=== PATIENT | female | born 1950 | race Caucasian/White ===

== ENCOUNTER → 2017-03-10 | Outpatient (CLI) | payer OTHER | LOC: FIMAGING 13:34 | PROVIDERS: ATTEND Physical Medicine & Rehabilitation | DX: M81.0 Age-related osteoporosis without current pathological fracture (principal); M54.6 Pain in thoracic spine ==

== ENCOUNTER → 2018-04-11 | Outpatient (CLI) | payer OTHER | LOC: FIMAGING 10:41 | PROVIDERS: ATTEND Physician Assistant | DX: R05 Cough (principal) ==

== ENCOUNTER 2018-05-20 16:29 | Emergency (ER) | payer OTHER ==
--- NOTE | 2018-05-20 16:47 | CPEKG ---
Test Reason : OPEN Blood Pressure : / mmHG Vent. Rate : 074 BPM Atrial Rate : 075 BPM P-R Int : 128 ms QRS Dur : 079 ms QT Int : 382 ms P-R-T Axes : 018 077 038 degrees QTc Int : 424 ms Sinus rhythm Confirmed by Michael Mcclure ([id number]) on 05/20/2018 4:46:58 PM Referred By: Confirmed By:Michael Mcclure
--- NOTE | 2018-05-20 16:55 | EDPHY ---
H & P Stated Complaint: cp Time Seen by Provider: 05/20/18 16:46 HPI/ROS: CHIEF COMPLAINT: chest cramping HISTORY OF PRESENT ILLNESS: The patient is a 67-year-old female who comes to the emergency department complaining of intermittent chest cramping sensation over the last week. She states that it is been somewhat constant over the last 4-5 hours. She was talking with her sister about the medications she takes. She states that her sister told her trazodone has a lot of side effects. The patient began looking them up on the Internet and saw that rapid heartbeat and chest pain which sometimes side effects of trazodone. She then began noticing that she was having some chest cramping. No nausea vomiting. No diaphoresis. No shortness of breath. She then called the cardiology office and Dr. Harmon recommended she come to the ER for evaluation. She does not think that she is having heart attack. She tells me that she was not pay much attention to it because she is more concerned about her chronic hip pain all week. No recent travel. No leg pain or swelling. No history of PE or DVT. Severity: Minimal Modifying factors: None REVIEW OF SYSTEMS: Constitutional: denies: chills, fever, recent illness, recent injury EENTM: denies: blurred vision, double vision, nose congestion Respiratory: denies: cough, shortness of breath Cardiac: See HPI denies: irregular heart rate, lightheadedness, palpitations Gastrointestinal/Abdominal: denies: abdominal pain, diarrhea, nausea, vomiting, blood streaked stools Genitourinary: denies: dysuria, frequency, hematuria, pain Musculoskeletal: denies: joint pain, muscle pain Skin: denies: lesions, rash, jaundice, bruising Neurological: denies: headache, numbness, paresthesia, tingling, dizziness, weakness Hematologic/Lymphatic: denies: blood clots, easy bleeding, easy bruising Immunologic/allergic: denies: HIV/AIDS, transplant 10 systems reviewed and negative except as noted EXAM: GENERAL: Well-appearing, well-nourished and in no acute distress. HEAD: Atraumatic, normocephalic. EYES: Pupils equal round and reactive to light, extraocular movements intact, sclera anicteric, conjunctiva are normal. ENT: TMs normal, nares patent, oropharynx clear without exudates. Moist mucous membranes. NECK: Normal range of motion, supple without lymphadenopathy or JVD. LUNGS: Breath sounds clear to auscultation bilaterally and equal. No wheezes rales or rhonchi. HEART: Regular rate and rhythm without murmurs, rubs or gallops. ABDOMEN: Soft, nontender, normoactive bowel sounds. No guarding, no rebound. No masses appreciated. BACK: No CVA tenderness, no spinal tenderness, step-offs or deformities EXTREMITIES: Normal range of motion, no pitting or edema. No clubbing or cyanosis. NEUROLOGICAL: Cranial nerves II through XII grossly intact. Normal speech, normal gait. 5/5 strength, normal movement in all extremities, normal sensation , normal reflexes PSYCH: Normal mood, normal affect. SKIN: Warm, dry, normal turgor, no visible rashes or lesions. Source: Patient Exam Limitations: No limitations - Personal History Current Tetanus/Diphtheria Vaccine: Yes - Medical/Surgical History Hx Asthma: No Hx Chronic Respiratory Disease: No Hx Diabetes: No Hx Cardiac Disease: No Hx Renal Disease: No Hx Cirrhosis: No Hx Alcoholism: No Hx HIV/AIDS: No Hx Splenectomy or Spleen Trauma: No Other PMH: Seizures, mitral valve prolapse - Family History Significant Family History: No pertinent family hx - Social History Smoking Status: Never smoked Alcohol Use: Sober Drug Use: None Constitutional: Initial Vital Signs Temperature (C) 36.8 C 05/20/18 16:36 Heart Rate 82 05/20/18 16:36 Respiratory Rate 16 05/20/18 16:36 Blood Pressure 141/87 H 05/20/18 16:36 O2 Sat (%) 94 05/20/18 16:36 O2 Delivery Mode Room Air Allergies/Adverse Reactions: phenytoin sodium [From Dilantin] Allergy (Verified 07/31/15 15:44) phenytoin sodium extended [From Dilantin] Allergy (Verified 07/31/15 15:44) Home Medications: Medication Instructions Recorded Estradiol [Estrace Vaginal (*)] 1 jacky VG DAILY 07/31/15 Herbals/Supplements -Info Only 1 ea PO DAILY 07/31/15 Hydrocodone/Acetaminophen [[place] 1 each PO Q4 PRN 07/31/15 5/325 (*)] Naltrexone 4.5mg Compounded 4.5 mg PO HS 12/31/15 Nystatin 500,000 unit PO TID 07/31/15 Rosuvastatin Calcium [Crestor 5mg] 5 mg PO MWF 07/31/15 levETIRAcetam [Keppra 500 mg (*)] 500 mg PO BID 07/31/15 Pantoprazole Sodium [Protonix 40mg 40 mg PO BID #120 tab 08/02/15 (*)] Ferrous Sulfate 325 mg PO DAILY #60 tablet. 08/03/15 Medical Decision Making - Diagnostics EKG Interpretation: An EKG obtained and was read and documented in trace view. Please see trace view for full reading and report. Sinus rhythm, no acute ischemic changes, unchanged from previous Imaging Results: Imaging Impressions Chest X-Ray 05/20/18 16:51 Impression: No acute cardiopulmonary process. Imaging: Discussed imaging studies w/ call center rn Radiologist ED Course/Re-evaluation: 6:15 p.m. We discussed her test results which are very reassuring. She is currently asymptomatic. We gauged ensure decision making. She does not wish to stay for any further testing. She will follow up with her filament welder Dr. Madden. I have requested a follow-up Cardiology consultation and stress test. She is agree with this. We discussed indications for returning. I feel that this is very low risk to be cardiac etiology. I also encouraged her to go back on her Protonix. She thinks that it is due to stress. She states she has the had "a lot going on the last few weeks". Differential Diagnosis: Partial list of the Differential diagnosis considered include but were not limited to; GERD, stress, musculoskeletal pain and although unlikely based on the history and physical exam, I also considered PE, pneumonia, acute coronary disease, dissection. I discussed these differential diagnoses and the plan with the patient as well as the usual and expected course. The patient understands that the diagnosis is provisional and that in medicine we are not always correct and that further workup is often warranted. Usual and customary warnings were given. All of the patient's questions were answered. The patient was instructed to return to the emergency department should the symptoms at all worsen or return, otherwise to followup with the physician as we discussed. - Data Points Laboratory Results: Laboratory Results 05/20/18 16:55 05/20/18 16:55 05/20/18 05/20/18 05/20/18 16:59 16:55 16:55 WBC RBC Hgb Hct MCV MCH MCHC RDW Plt Count MPV Neut % (Auto) Lymph % (Auto) Walker % (Auto) Eos % (Auto) Baso % (Auto) Nucleat RBC Rel Count Absolute Neuts (auto) Absolute Lymphs (auto) Absolute Monos (auto) Absolute Eos (auto) Absolute Basos (auto) Absolute Nucleated RBC Immature Gran % Immature Gran # D-Dimer < 0.27 ug/mLFEU ug/mLFEU (0.00-0.50) Sodium 139 mEq/L mEq/L (135-145) Potassium 4.1 mEq/L mEq/L (3.3-5.0) Chloride 101 mEq/L mEq/L (97-110) Carbon Dioxide 27 mEq/l mEq/l (22-31) Anion Gap 11 mEq/L mEq/L (6-14) BUN 14 mg/dL mg/dL (7-23) Creatinine 0.6 mg/dL mg/dL (0.6-1.0) Estimated GFR > 60 Glucose 106 mg/dL H mg/dL (70-100) Calcium 9.7 mg/dL mg/dL (8.5-10.4) Total Bilirubin 0.3 mg/dL mg/dL (0.1-1.4) Conjugated Bilirubin 0.2 mg/dL mg/dL (0.0-0.5) Unconjugated Bilirubin 0.1 mg/dL mg/dL (0.0-1.1) AST 24 IU/L IU/L (14-46) ALT 20 IU/L IU/L (9-52) Alkaline Phosphatase 68 IU/L IU/L (38-126) POC Troponin I 0.01 ng/mL ng/mL (0.00-0.08) Total Protein 7.3 g/dL g/dL (6.3-8.2) Albumin 4.3 g/dL g/dL (3.5-5.0) Lipase 256 IU/L IU/L (23-300) 05/20/18 16:55 WBC 5.71 10^3/uL 10^3/uL (3.80-9.50) RBC 4.50 10^6/uL 10^6/uL (4.18-5.33) Hgb 14.3 g/dL g/dL (12.6-16.3) Hct 42.0 % % (38.0-47.0) MCV 93.3 fL fL (81.5-99.8) MCH 31.8 pg pg (27.9-34.1) MCHC 34.0 g/dL g/dL (32.4-36.7) RDW 12.3 % % (11.5-15.2) Plt Count 244 10^3/uL 10^3/uL (150-400) MPV 10.2 fL fL (8.7-11.7) Neut % (Auto) 56.5 % % (39.3-74.2) Lymph % (Auto) 31.3 % % (15.0-45.0) Walker % (Auto) 10.0 % % (4.5-13.0) Eos % (Auto) 1.4 % % (0.6-7.6) Baso % (Auto) 0.4 % % (0.3-1.7) Nucleat RBC Rel Count 0.0 % % (0.0-0.2) Absolute Neuts (auto) 3.23 10^3/uL 10^3/uL (1.70-6.50) Absolute Lymphs (auto) 1.79 10^3/uL 10^3/uL (1.00-3.00) Absolute Monos (auto) 0.57 10^3/uL 10^3/uL (0.30-0.80) Absolute Eos (auto) 0.08 10^3/uL 10^3/uL (0.03-0.40) Absolute Basos (auto) 0.02 10^3/uL 10^3/uL (0.02-0.10) Absolute Nucleated RBC 0.00 10^3/uL 10^3/uL (0-0.01) Immature Gran % 0.4 % % (0.0-1.1) Immature Gran # 0.02 10^3/uL 10^3/uL (0.00-0.10) D-Dimer Sodium Potassium Chloride Carbon Dioxide Anion Gap BUN Creatinine Estimated GFR Glucose Calcium Total Bilirubin Conjugated Bilirubin Unconjugated Bilirubin AST ALT Alkaline Phosphatase POC Troponin I Total Protein Albumin Lipase Point of Care Test Results: Chemistry 05/20/18 16:59 POC Troponin I 0.01 ng/mL ng/mL (0.00-0.08) Departure - Departure Disposition: Home, Routine, Self-Care Clinical Impression: Chest pain Qualifiers: Chest pain type: unspecified Qualified Code(s): R07.9 - Chest pain, unspecified Condition: Fair Instructions: Chest Pain (ED) Referrals: NONE *PRIMARY CARE P,. [Primary Care Provider] - As per Instructions Katey Madden MD [Medical Doctor] - As per Instructions
[2018-05-20 17:22] LABS: PLATELET COUNT 244 10^3/uL (150-400)
[2018-05-20 17:30] VITALS: BP 129/77
== END 2018-05-20 18:46 | disposition home or self-care (01) ==
DX: R07.89 Other chest pain (principal); Z79.899 Other long term (current) drug therapy; I34.1 Nonrheumatic mitral (valve) prolapse; G40.909 Epilepsy, unspecified, not intractable, without status epilepticus
CPT/HCPCS: 84484-PO

== ENCOUNTER 2018-11-03 13:50 | Emergency (ER) | payer OTHER ==
--- NOTE | 2018-11-03 14:13 | EDPHY ---
H & P Stated Complaint: Dark stool for 1 week, sent by PCP. Time Seen by Provider: 11/03/18 14:10 - Personal History Current Tetanus Diphtheria and Acellular Pertussis (TDAP): Yes - Medical/Surgical History Hx Asthma: No Hx Chronic Respiratory Disease: No Hx Diabetes: No Hx Cardiac Disease: No Hx Renal Disease: No Hx Cirrhosis: No Hx Alcoholism: No Hx HIV/AIDS: No Hx Splenectomy or Spleen Trauma: No Other PMH: Seizures. Stomach ulcer. - Social History Smoking Status: Never smoked Constitutional: Initial Vital Signs Temperature (C) 36.6 C 11/03/18 13:56 Heart Rate 84 11/03/18 13:56 Respiratory Rate 16 11/03/18 13:56 Blood Pressure 99/74 L 11/03/18 13:56 O2 Sat (%) 97 11/03/18 13:56 O2 Delivery Mode Room Air Allergies/Adverse Reactions: phenytoin sodium [From Dilantin] Allergy (Verified 07/31/15 15:44) phenytoin sodium extended [From Dilantin] Allergy (Verified 07/31/15 15:44) Home Medications: Medication Instructions Recorded Estradiol [Estrace Vaginal (*)] 1 jacky VG DAILY 07/31/15 Herbals/Supplements -Info Only 1 ea PO DAILY 07/31/15 Hydrocodone/Acetaminophen [[place] 1 each PO Q4 PRN 07/31/15 5/325 (*)] Naltrexone 4.5mg Compounded 4.5 mg PO HS 07/31/15 Nystatin 500,000 unit PO TID 07/31/15 Rosuvastatin Calcium [Crestor 5mg] 5 mg PO MWF 07/31/15 levETIRAcetam [Keppra 500 mg (*)] 500 mg PO BID 07/31/15 Pantoprazole Sodium [Protonix 40mg 40 mg PO BID #120 tab 08/02/15 (*)] Ferrous Sulfate 325 mg PO DAILY #60 tablet. 08/03/15 Medical Decision Making ED Course/Re-evaluation: CHIEF COMPLAINT: HISTORY OF PRESENT ILLNESS: must have 4 elements: Location, Quality, Severity , Duration, Timing, Context, Modifying Factors, Associated Signs and Symptoms REVIEW OF SYSTEMS: A comprehensive 10 system review of systems is otherwise negative aside from elements mentioned in the history of present illness and medical decision making. PHYSICAL EXAM: HR, BP, O2 Sat, RR. Temp noted General Appearance: Alert, well hydrated, appropriate, and non-toxic appearing. Head: Atraumatic without scalp tenderness or obvious injury Eyes: Pupils equal, round, reactive to light and accommodation, EOMI, no trauma , no injection. Ears: Clear bilaterally, no perforation, normal landmarks Nose: Atraumatic, no rhinorrhea, clear. Throat: There is no erythema or exudates, no lesions, normal tonsils, mucus membranes moist. Neck: Supple, 2+ carotid upstroke, nontender, no lymphadenopathy. Respiratory: No retractions, no distress, no wheezes, and no accessory muscle use. Lungs are clear to auscultation bilaterally. Cardiovascular: Regular rate and rhythm, no murmurs, rubs, or gallops. Bilateral carotid, radial, dorsalis pedis, and posterior tibial pulses intact. Good capillary refill all extremities. Gastrointestinal: Abdomen is soft, nontender, non-distended, no masses, no rebound, no guarding, no peritoneal signs. Musculoskeletal: Normal active ROM of all extremities, atraumatic. Neurological: Alert, appropriate, and interactive. The patient has normal DTRs and non-focal cranial nerves, motor, sensory, and cerebellar exam. Skin: No rashes, good turgor, no nodules on palpation. Past medical history: Past surgical history: Family history: Social history: DIAGNOSTICS/PROCEDURES/CRITICAL CARE TIME: DIFFERENTIAL DIAGNOSIS: MEDICAL DECISION MAKING: Departure - Departure Referrals: Marco Borrero, [Primary Care Provider] - As per Instructions
[2018-11-03] MEDS ORDERED: NS 1,000 ML IV ONE (14:15)
--- NOTE | 2018-11-03 14:16 | EDPHY ---
HPI/HX/ROS/PE/MDM Narrative: CHIEF COMPLAINT: Possible GI bleed HPI: This patient is a 68 year old female with history of seizure disorders and stomach ulcers. She arrives today at the request of her primary care physician' s office for evaluation of possible GI bleed. She complains of dark tarry stools ongoing for one week. She initially thought this might be related to dark chocolate consumption. She has had an upper GI with melena in the past and feels her current stool is not as tarry and dark as on that occasion. She wanted to get lab tests done and attempted to follow up with gastroenterology but was referred here to the ED by staff at her GI and PCP offices. Denies taking any Pepto-Bismol or iron supplements. She did have a B12 shot. No other supplements. She denies any abdominal pain. She endorses occasional palpitations. She endorses occasional weakness, but this is not unusual for her. No chest pain, shortness of breath, nausea, vomiting, hematemesis. REVIEW OF SYSTEMS: A comprehensive 10 system review of systems is otherwise negative aside from elements mentioned in the history of present illness and medical decision making. PMH: Seizures. Stomach ulcers. Hyperlipidemia (Crestor). Psoriatic arthritis. SOCIAL HISTORY: . Works for [employer]. Lives in [place]. PHYSICAL EXAM: General:Patient is alert, in no acute distress. ENT:Eyes are normal to inspection. ENT inspection normal. Neck: Normal inspection. Full range of motion. Respiratory:No respiratory distress. Breath sounds normal bilaterally. Cardiovascular: Regular rate and rhythm. Strong peripheral pulses. Normal cap refill. Abdomen:The abdomen is nontender to palpation. There are no peritoneal signs. There are normal bowel sounds. Back: Normal to inspection. No tenderness to palpation. Rectal: Patient has declined a rectal exam. Skin: Normal color. No rash. Warm and dry. Extremities: Normal appearance. Full range of motion. Neuro: Oriented x3. Normal motor function. Normal sensory function. ED Course: 68 y/o female presents with one week history of dark stools. Plan for CBC, chemistries, co-ag panel, occult blood from stool sample. Patient declines rectal exam at this time. Patient declines IV and prefers a phlebotomy stick for laboratory studies. She understands she may require an IV later depending on results. She feels she will be able to provide a stool sample this afternoon. She declines IV fluids or other medications. Reviewed laboratory studies. These are completely unremarkable, H&H are 13 and 39 respectively. Patient has been unable to provide a stool sample and would like to go home. We discussed followup options. She will take a stool sample to her primary care provider for evaluation. Referral to GI provided. Plan to discharge home in good condition. Follow up precautions discussed. She is comfortable with this plan. - Data Points Laboratory Results: Laboratory Results 11/03/18 14:30 11/03/18 14:30 11/03/18 11/03/18 11/03/18 14:30 14:30 14:30 WBC 5.18 10^3/uL 10^3/uL (3.80-9.50) RBC 4.13 10^6/uL L 10^6/uL (4.18-5.33) Hgb 12.9 g/dL g/dL (12.6-16.3) Hct 38.8 % % (38.0-47.0) MCV 93.9 fL fL (81.5-99.8) MCH 31.2 pg pg (27.9-34.1) MCHC 33.2 g/dL g/dL (32.4-36.7) RDW 12.3 % % (11.5-15.2) Plt Count 268 10^3/uL 10^3/uL (150-400) MPV 9.9 fL fL (8.7-11.7) Neut % (Auto) 54.0 % % (39.3-74.2) Lymph % (Auto) 33.6 % % (15.0-45.0) [place] % (Auto) 11.0 % % (4.5-13.0) Eos % (Auto) 0.6 % % (0.6-7.6) Baso % (Auto) 0.6 % % (0.3-1.7) Nucleat RBC Rel Count 0.0 % % (0.0-0.2) Absolute Neuts (auto) 2.80 10^3/uL 10^3/uL (1.70-6.50) Absolute Lymphs (auto) 1.74 10^3/uL 10^3/uL (1.00-3.00) Absolute Monos (auto) 0.57 10^3/uL 10^3/uL (0.30-0.80) Absolute Eos (auto) 0.03 10^3/uL 10^3/uL (0.03-0.40) Absolute Basos (auto) 0.03 10^3/uL 10^3/uL (0.02-0.10) Absolute Nucleated RBC 0.00 10^3/uL 10^3/uL (0-0.01) Immature Gran % 0.2 % % (0.0-1.1) Immature Gran # 0.01 10^3/uL 10^3/uL (0.00-0.10) PT 12.8 SEC SEC (12.0-15.0) INR 1.00 (0.83-1.16) APTT 31.0 SEC SEC (23.0-38.0) Sodium 135 mEq/L mEq/L (135-145) Potassium 4.2 mEq/L mEq/L (3.5-5.2) Chloride 100 mEq/L mEq/L (97-110) Carbon Dioxide 24 mEq/l mEq/l (22-31) Anion Gap 11 mEq/L mEq/L (6-14) BUN 17 mg/dL mg/dL (7-23) Creatinine 0.6 mg/dL mg/dL (0.6-1.0) Estimated GFR > 60 Glucose 94 mg/dL mg/dL (70-100) Calcium 9.4 mg/dL mg/dL (8.5-10.4) Medications Given: Discontinued Medications Sodium Chloride (Ns) 1,000 mls @ 0 mls/hr IV EDNOW ONE; Wide Open PRN Reason: Protocol Stop: 11/03/18 14:16 Last Admin: 11/03/18 14:39 Dose: Not Given General Time Seen by Provider: 11/03/18 14:10 Initial Vital Signs: Initial Vital Signs Temperature (C) 36.6 C 11/03/18 13:56 Heart Rate 84 11/03/18 13:56 Respiratory Rate 16 11/03/18 13:56 Blood Pressure 99/74 L 11/03/18 13:56 O2 Sat (%) 97 11/03/18 13:56 O2 Delivery Mode Room Air Allergies/Adverse Reactions: phenytoin sodium [From Dilantin] Allergy (Verified 07/31/15 15:44) phenytoin sodium extended [From Dilantin] Allergy (Verified 07/31/15 15:44) Home Medications: Medication Instructions Recorded Estradiol [Estrace Vaginal (*)] 1 jacky VG DAILY 07/31/15 Herbals/Supplements -Info Only 1 ea PO DAILY 07/31/15 Hydrocodone/Acetaminophen [[place] 1 each PO Q4 PRN 07/31/15 5/325 (*)] Naltrexone 4.5mg Compounded 4.5 mg PO HS 07/31/15 Nystatin 500,000 unit PO TID 07/31/15 Rosuvastatin Calcium [Crestor 5mg] 5 mg PO MWF 07/31/15 levETIRAcetam [Keppra 500 mg (*)] 500 mg PO BID 07/31/15 Pantoprazole Sodium [Protonix 40mg 40 mg PO BID #120 tab 08/02/15 (*)] Ferrous Sulfate 325 mg PO DAILY #60 tablet. 08/03/15 Departure - Departure Disposition: Home, Routine, Self-Care Clinical Impression: Dark stools Condition: Good Instructions: Additional Information Additional Instructions: Follow up with gastroenterology within one week as we discussed. Please obtain a stool sample and have your primary care provider order necessary tests as discussed. Return to the emergency department for chest pain, weakness, shortness of breath , fever, increased blood or dark stools, blood in your vomit, or other worsening of condition. Referrals: Marco Borrero DO [Primary Care Provider] - As per Instructions Alejo Simpson MD [Medical Doctor] - As per Instructions Report Scribed for: Nelson Ham Report Scribed by: Yris Vazquez Date of Report: 11/03/18 Time of Report: 14:14 Physician Review and Approval Statement: Portions of this note were transcribed by an ED scribe. I personally performed the history, physical exam, and medical decision making; and confirm the accuracy of the information in the transcribed note.
[2018-11-03 14:46] LABS: PLATELET COUNT 268 10^3/uL (150-400)
[2018-11-03 14:49] LABS: PROTIME(PATIENT) 12.8 SEC (12.0-15.0)
[2018-11-03 16:48] VITALS: BP 141/91
== END 2018-11-03 16:45 | disposition home or self-care (01) ==
DX: R19.5 Other fecal abnormalities (principal); E86.9 Volume depletion, unspecified; K25.9 Gastric ulcer, unspecified as acute or chronic, without hemorrhage or perforation; L40.50 Arthropathic psoriasis, unspecified